=== PATIENT | male | born 1990 | race Two or more races ===

== ENCOUNTER 2020-06-10 10:50 | Emergency (ER) | payer OTHER, SELFPAY ==
[2020-06-10 10:51] VITALS: BP 142/90; PULSE 67; RESP 15; TEMP 36.4; O2SAT 98; BMI 25.0
--- NOTE | 2020-06-10 11:03 | EKG12_ITS ---
Test Reason : CP Blood Pressure : / mmHG Vent. Rate : 058 BPM Atrial Rate : 058 BPM P-R Int : 140 ms QRS Dur : 088 ms QT Int : 416 ms P-R-T Axes : -05 012 016 degrees QTc Int : 408 ms Sinus bradycardia Otherwise normal ECG Confirmed by OBDULIA DAVID MD ([id number]), editor in chief STEPHEN PRADO ([id number] on 06/13/2020 1:08:00 PM Referred By: Confirmed By:OBDULIA DAVID MD
--- NOTE | 2020-06-10 11:04 | ED.DCSUM_ITS ---
History of Present Illness Chief Complaint: Chest Other Informant: Patient Narrative: 29 year-old male with no past medical history presents with chest pain and shortness of breath. States that it began approximately 2 days ago. States it is intermittent in nature. Describes the pain is sharp. Denies any fever, chills, cough. Denies any nausea, vomiting, diaphoresis. Patient states that he had similar symptoms 2 weeks ago but did not come to the hospital at that time. Was concerned because he felt like he stopped breathing in his sleep 2 days ago. Patient is not a current smoker. No family history of early cardiac . Denies any history of DVT or pulmonary embolism. No recent long trips, surgeries, hospitalizations. Denies any drugs or alcohol. Past Medical History - Allergies and Home Meds Allergies/Adverse Reactions: Allergies No Known Allergies Allergy (Verified 06/10/20 10:51) Prior records reviewed: Yes Past Medical History: None Surgical History: no surgical history Lives: Alone Smoking Status: Never smoker Alcohol: None Drugs: None Review of Systems General: Denies: Chills, Fever, Sweats Eyes: Denies: Visual changes - bilaterally, Diplopia ENT: Denies: Rhinorrhea, Sore throat Cardiovascular: Reports: Chest pain. Denies: Palpitations Respiratory: Reports: Dyspnea. Denies: Cough, Dyspnea on exertion Gastrointestinal: Denies: Abdominal pain, Nausea, Vomiting, Diarrhea, Melena, Hematochezia Genitourinary: Denies: Dysuria, Hematuria, Frequency Musculoskeletal: Denies: Back pain, Extremity Pain Skin: Denies: Rash, Wounds Neurological: Denies: Headache, Weakness, Numbness Physical Exam Vital Signs/Narrative: Vital Signs Temp Pulse Resp BP Pulse Ox 06/10/20 10:51 97.5 F L 67 15 142/90 H 98 Inital Vital Signs reviewed: Yes General: Well nourished, Well developed, No Acute Distress Head: Normocephalic, Atraumatic Eyes: Perrl, EOMI ENT: Moist mucous membranes, No rhinorrhea Neck: Supple, Nontender Cardiovascular: Regular rate, Regular rhythm, No murmurs Respiratory: No distress, CTA bilaterally, Chest nontender Abdomen: Soft, Nontender, Nondistended, Normal bowel sounds Back: Nontender, Normal Inspection Extremities: Nontender, No edema Skin: Normal color, No rash Neurological: Alert, Oriented x3, Cranial nerves II-XII grossly intact, Normal Strength, Normal Sensation Psychological: Normal affect, Normal Mood Diagnostic/Tx/Re-eval Clinical Impression(s) from Imaging Studies Chest X-Ray 06/10/20 11:15 IMPRESSION: Normal x-ray examination of the chest. Electronically Signed: Raghavendra Gonzalez MD at 11:39 EDT , Service support , Laboratory Data 06/10/20 06/10/20 06/10/20 11:18 11:18 11:18 WBC 5.6 RBC 5.18 Hgb 15.0 Hct 44.5 MCV 85.9 MCH 29.0 MCHC 33.7 RDW Std Deviation 38.0 RDW Coeff of Tika 12.2 Plt Count 285 MPV 9.7 Immature Gran % (Auto) 0.200 Neut % (Auto) 50.7 Lymph % (Auto) 33.6 Howard % (Auto) 9.1 Eos % (Auto) 5.9 H Baso % (Auto) 0.5 Absolute Neuts (auto) 2.8 Absolute Lymphs (auto) 1.88 Nucleated RBC % 0 D-Dimer Quant (PE/DVT) <= 0.27 Sodium 139 Potassium 3.5 Chloride 108 H Carbon Dioxide 28.0 Anion Gap 3 L BUN 11 Creatinine 1.12 Estim Creat Clear Calc 83.89 Est GFR (MDRD) Af Amer 99 Est GFR (MDRD) Non-Af 81 BUN/Creatinine Ratio 9.8 L Glucose 107 H Calcium 9.1 Troponin I < 0.015 TSH 3.12 - Rhythm Strip Rhythm Strip: sinus bradycardia Rate: 58 Ectopy: None - EKG Initial EKG Interpretation: Sinus Bradycardia - Bradycardia 58 bpm. AZ interval 140 ms. QTC of 408 ms. No evidence of ST elevation or depression at this time. - Medical Decision Making Appears well and nontoxic. Vital signs within normal limits. EKG nonischemic. Troponin and d-dimer negative. Chest x-ray negative. After extensive discussion with the patient he will be given primary care physician to follow-up with in the future. Advised that he may want to speak with them about possible sleep study. Asked to return for new or worsening symptoms. Patient agreeable and discharged home in stable condition. Impression: 1. Atypical chest pain 2. Dyspnea ED Disposition - Plan for ED Patient: Disposition: Home or Assisted Living Instructions: ED Chest Pain Atypical Unkn Cause Referrals: Michael Baird DO [STAFF PHYSICIAN] -
--- NOTE | 2020-06-10 11:15 | RAD_ITS ---
STUDY: X-RAY CHEST REASON FOR EXAM: Male, 29 years old. PT STATES HE THINKS HE STOPS BREATHING IN HIS SLEEP ALL THE TIME. LEFT ARM NUMBNESS AND LEFT SIDE CHEST PAIN SINCE YESTERDAY. PT SHIELDED. TECHNIQUE: Single AP portable view of the chest. COMPARISON: None. FINDINGS: EKG leads overlie the chest The lungs are clear and expanded. There is no demonstrated pleural abnormality. Normal size heart. Normal mediastinum and otilio. Normal visualized pulmonary arteries. Normal visualized aortic arch and descending thoracic aorta. Normal visualized thoracic spine. Normal visualized ribs, clavicles, and shoulders. There is no demonstrated abnormality of the visualized soft tissue structures of the upper abdomen. RAD/Chest 1 View (Portable) IMPRESSION: Normal x-ray examination of the chest. Electronically Signed: Raghavendra Gonzalez MD at 11:39 EDT , Service support ,
[2020-06-10 11:28] LABS: Absolute Lymphocyte Count 1.88 X10^3/uL (0.83-4.51); Absolute Neutrophil Count 2.8 X10^3/uL (2.0-7.7); Basophil# 0.03 X10^3/uL; Basophil% 0.5 % (0-1); Eosinophil# 0.33 X10^3/uL; Eosinophils% 5.9 % (0-5); Hematocrit 44.5 % (40-54); Lymphocyte # 1.88 X10^3/ul (4.0); Lymphocyte % 33.6 % (19-41); Mean Corp Hgb Conc 33.7 g/dL (32-36); Mean Corpuscular Volume 85.9 fL (80-94); Mean Platelet Vol. 9.7 fl (6.2-12.0); Monocyte# 0.51 X10^3/uL; Monocyte% 9.1 % (0-10); NRBC Flagged by Analyzer 0 % (0-5); Neutrophil # 2.83 X10^3/uL (2.7-7.7); Neutrophil % 50.7 % (47-70); Platelet Count 285 K/mm3 (150-450); RBC Distribution Width CV 12.2 % (11.6-14.6); Red Blood Count 5.18 M/mm3 (4.6-6.2); White Blood Count 5.6 K/mm3 (4.4-11.0)
[2020-06-10 11:49] LABS: Anion Gap 3 (5-15); BUN 11 mg/dL (7-18); BUN/Creat Ratio 9.8 RATIO (10-20); Calcium,Total 9.1 mg/dL (8.5-10.1); Chloride 108 mmol/L (98-107); Creatinine, Serum 1.12 mg/dL (0.70-1.30); EST Glomerular Filtration Rate 81 mL/min (>60); Est Glom Filt Rate - Afr Amer 99 mL/min (>60); Estimated Creatinine Clearance 83.89 ml/min; Glucose 107 mg/dL (74-106); Potassium 3.5 mmol/L (3.5-5.1); Sodium Level 139 mmol/L (136-145); Thyroid Stim Hormone (TSH) 3.12 uIU/mL (0.358-3.74)
[2020-06-10 11:59] LABS: D-Dimer Quantitative (DVT/PE) <= 0.27 FEU/ug/m (0.27-0.49)
[2020-06-10 12:15] VITALS: BP 134/75; PULSE 49; RESP 12; O2SAT 100
== END 2020-06-10 12:52 | disposition home or self-care (01) ==
LOC: ED 12:40
PROVIDERS: Emergency Provider Emergency Medicine
DX: R07.89 Other chest pain (principal); R06.00 Dyspnea, unspecified
CPT/HCPCS: 71045; 80048; 84443; 84484; 85025; 85379; 93005; 99284; A4216